=== PATIENT | female | born 1980 | race Caucasian/White ===

== ENCOUNTER 2023-03-21 17:07 | Emergency (ER) | payer MEDICAID, SELFPAY ==
[2023-03-21 17:12] VITALS: BP 123/76; PULSE 116; RESP 20; TEMP 36.6; O2SAT 100
--- NOTE | 2023-03-21 18:41 | ED.DENTAL ---
HPI - Dental/Oral General Chief complaint: Dental/Oral Stated complaint: dental issues Time Seen by Provider: 03/21/23 18:09 History of Present Illness HPI Narrative: 42-year-old female reports for evaluation for left-sided dental pain since this morning. Patient states she has a history of poor dentition has had multiple teeth removed to her maxilla over the years. She has been your dentist in multiple months because every time he pulls the tooth, she gets an infection. She denies fever, difficulty breathing, facial swelling. She also states that she has been diagnosed with bronchitis recently and is taking azithromycin. She has had multiple negative COVID and strep test. Related Data Allergies Allergy/AdvReac Type Severity Reaction Status Date / Time NSAIDS (Non-Steroidal Allergy Unknown Verified 03/21/23 17:15 Anti-Inflamma tramadol Allergy Unknown Verified 03/21/23 17:15 Review of Systems Review of Systems: CONSTITUTIONAL: Denies fever, chills, or sweats. EYES: Denies visual changes, redness, or discharge. ENT: See HPI CARDIOVASCULAR: Denies chest pain, palpitations, or edema. RESPIRATORY: See HPI GASTROINTESTINAL: Denies abdominal pain, nausea, vomiting, or diarrhea. GENITOURINARY: Denies dysuria or hematuria. SKIN: Denies rash or itching. MUSCULOSKELETAL: Denies back pain, joint pain, or myalgia. NEUROLOGIC: Denies headache, numbness, or weakness. PSYCHIATRIC: Denies anxiety or depression. Exam Narrative: GENERAL: Well-appearing, well-nourished, and in no acute distress. HEAD: Normocephalic, atraumatic. EYES: PERRLA and EOMI. ENT: Nares clear, no rhinorrhea or epistaxis. Mucous membranes moist. Poor dentition throughout with multiple caries. Missing teeth throughout maximum number. Periodontal disease throughout. No evidence of periapical abscess, facial edema, areas of induration or fluctuation. No facial cellulitis. For mouth is soft without crepitus. Posterior pharynx without edema or erythema. No tonsillar hypertrophy. Uvula midline. No trismus. Patient tolerating secretions. Bilateral TMs are parker nonbulging. Normal canals. NECK: Supple. CHEST: Clear to auscultation. No respiratory distress. HEART: Regular rate and rhythm. No murmur heard. Normal peripheral pulses. ABDOMEN: Soft, nontender, nondistended, normal active bowel sounds. EXTREMITIES: Normal range of motion. No edema. SKIN: Warm, dry, no rash. NEURO: No focal deficits. Alert and oriented x3 Course Vital Signs Vital signs: Vital Signs Temperature 97.9 F 03/21/23 17:12 Pulse Rate 116 H 03/21/23 17:12 Respiratory Rate 20 03/21/23 17:12 Blood Pressure 123/76 03/21/23 17:12 Pulse Oximetry 100 03/21/23 17:12 Temperature 97.9 F 03/21/23 17:12 Pulse Rate 89 03/21/23 18:57 Respiratory Rate 20 03/21/23 18:57 Blood Pressure 123/76 03/21/23 17:12 Pulse Oximetry 98 03/21/23 18:57 MDM - Dental/Oral MDM Narrative Medical decision making narrative: 42-year-old female reports for evaluation for dental pain that started today. See HPI for further history. Vitals significant for tachycardia 116, otherwise unremarkable. She is afebrile. Exam is significant for the above. Specifically, no signs or symptoms of deep space infection, no airway compromise. Lung sounds are clear. Patient is requesting cough medications for her diagnosed bronchitis. I offered Leola Chowdhury, however she declined. I encouraged her to take [id number] cough medications. She is currently taking azithromycin for bronchitis. Encouraged to continue taking his medication and I will also prescribe Augmentin for dental source of infection. I encouraged her to follow-up with PCP and a dentist. Referrals provided. Encouraged her to take Tylenol as needed for pain. Strict ED return precautions discussed. She is agreeable to plan verbalized understanding. Heart rate improved prior to discharge. Discharged in stab
[2023-03-21] MEDS: AMOXICILLIN/CLAVULANATE K 875-125 MG TAB 1 TABLET PO (18:55)
[2023-03-21] MEDS: HYDROcodone/acetaminophen (*CRX) 5-325 MG TABLET 1 TAB PO (18:55)
[2023-03-21 18:57] VITALS: PULSE 89; RESP 20; O2SAT 98
== END 2023-03-21 19:02 | disposition home or self-care (01) ==
PROVIDERS: Emergency Provider Physician Assistant
DX: K02.9 Dental caries, unspecified (principal)
CPT/HCPCS: 99283; A9270